=== PATIENT | male | born 1960 | race Caucasian/White ===

== ENCOUNTER 2016-05-26 11:56 | Emergency (ER) | payer BC ==
[~2016-05-26] VITALS: Ht 170.2 cm; Wt 105.1 kg
[2016-05-26 11:59] VITALS: TEMP 36.4; Ht 170.2 cm; Wt 105.1 kg
[2016-05-26] MEDS ORDERED: PRED10TA PO (12:13)
[2016-05-26] MEDS ORDERED: ASPI81TA28 PO (12:14)
[2016-05-26] MEDS ORDERED: MULT-506 PO (12:14)
[2016-05-26] MEDS ORDERED: PRED-301 PO (12:14)
--- NOTE | 2016-05-26 13:10 | EMERGENCY ROOM VISIT NOTE ---
History First contact with patient: 12:26 Chief Complaint: BACK PAIN Stated Complaint: LOWER BACK PAIN History of Present Illness The patient is a 56 year old male who presents to the Emergency Room with complaints of low back pain. The patient has had low back pain for the last 3 weeks. He has seen his family doctor twice and has tried prednisone. He states the pain is progressively worsening. The patient rates the pain is in the right side of the low back and rated 8/10. The pain radiates to the right lower extremity. He states the pain in the leg is intermittent. He denies any numbness, tearing, weakness, loss of bowel or bladder control. He denies any fevers or chills. He denies abdominal pain, nausea or vomiting. He denies any urinary symptoms. He denies any history of back pain. Review of Systems A 10 system review of systems was completed with positives and pertinent negatives listed in the HPI. Past Medical/Surgical History Medical Problems: (1) Hypertension Social History Smoking Status: Former Smoker Housing Status: lives with family Current/Historical Medications Scheduled Aspirin (Aspirin Ec), 81 MG PO DAILY Multivitamin (Multivitamin), 1 TAB PO DAILY Ondasetron Odt (Zofran Odt), 4 MG SL Q6H Prednisone (Prednisone), 0 PO UD Scheduled PRN Ketorolac (Toradol), 10 MG PO TID PRN for Pain Oxycodone Ir (Roxicodone Ir), 1-2 TAB PO Q4H PRN for Pain Allergies Coded Allergies: No Known Allergies (Unverified , 05/26/16) Physical Exam Vital Signs Date Time Temp Pulse Resp B/P Pulse Ox O2 Delivery O2 Flow Rate FiO2 05/26/16 16:40 57 18 185/90 95 05/26/16 15:59 58 18 168/82 98 Room Air 05/26/16 14:16 58 16 207/101 97 05/26/16 11:59 36.4 70 20 204/89 95 Room Air Physical Exam VITALS: Vitals are noted on the nurse's note and reviewed by myself. Vital signs stable. GENERAL: This is a 56-year-old male, in no acute distress, nondiaphoretic, well- developed well-nourished. SKIN: The skin was without rashes, erythema, edema, or bruising. There is no tenting of the skin. Capillary reflex less than 2 seconds. HEAD: Normocephalic atraumatic. EARS: External auditory canals clear, tympanic membranes pearly pérez without erythema or effusion bilaterally. EYES: Pupils equal round and reactive to light and accommodation. Conjunctivae without injection, sclerae without icterus. Extraocular movements intact. NOSE: Patent, turbinates without inflammation or discharge. MOUTH: Mucous membranes moist. Tonsils are not enlarged. Pharynx without erythema or exudate. Uvula midline. Airway patent. Tongue does not deviate. NECK: Supple without nuchal rigidity. No lymphadenopathy. No thyromegaly. Cervical spine is nontender. No JVD. HEART: Regular rate and rhythm without murmurs gallops or rubs. LUNGS: Clear to auscultation bilaterally without wheezes, rales or rhonchi. No retractions or accessory muscle use. ABDOMEN: Positive bowel sounds x 4. Soft, nontender, without masses or organomegaly. Graf sign negative. MUSCULOSKELETAL: No muscle atrophy, erythema, or edema noted. Full range of motion in all extremities. There is tenderness to palpation to the lumbar spine and right paraspinous muscles in the lumbar area. Strength 5/5 throughout. NEURO: Patient was alert and oriented to person place and time. Normal sensation to light and sharp touch. Deep tendon reflexes 2+ throughout. No focal neurological deficits. Medical Decision & Procedures ER Provider Diagnostic Interpretation: LUMBAR SPINE CT CT DOSE: 706.34 mGycm HISTORY: low back pain with radiation to right leg TECHNIQUE: Multiaxial CT images of the lumbar spine were performed and reformatted in the sagittal and coronal plane without the use of contrast. COMPARISON: None. FINDINGS: No fractures. No subluxation. Paraspinal soft tissues are unremarkable. Mild facet degenerative changes seen within the lower lumbar spine. Disc spaces are preserved. Minimal anterior wedging within the L1 and be seen within the range of normal limits. Tiny endplate osteophytes at L4-L5. At the right posterior aspect of the L4 vertebral body there is a 10 x 6 mm soft tissue density abutting the thecal sac. This results in mild to moderate right-sided central canal narrowing. This appears to compress the exiting right L4 nerve root. IMPRESSION: 1. No fractures within the lumbar spine. 2. At the right posterior aspect of the L4 vertebral body there is a 10 x 6 mm soft tissue density abutting the thecal sac. This results in mild to moderate right-sided central canal narrowing. This appears to compress the exiting right L4 nerve root. This most likely represents a disc protrusion with subtle superior subligamentous migration from the L4-L5 level versus a sequestered disc fragment. A soft tissue mass could also have a similar appearance but is considered less likely. Therefore, follow-up nonemergent MRI is recommended for further evaluation. Medications Administered Medications (Trade) Dose Ordered Sig/Lily Route Start Time Stop Time Status Last Admin Dose Admin Morphine Sulfate (MoRPHine SULFATE INJ) 6 mg NOW STAT IM 05/26/16 13:37 05/26/16 13:38 DC 05/26/16 13:45 6 MG Ondansetron HCl (Zofran Odt) 4 mg ONE ONCE PO 05/26/16 13:45 05/26/16 13:46 DC 05/26/16 13:44 4 MG Hydromorphone HCl (Dilaudid Inj) 1 mg NOW STAT IM 05/26/16 15:32 05/26/16 15:33 DC 05/26/16 15:51 1 MG ED Course The patient was seen and examined. Previous visits were reviewed. The patient does not have fever. He does not have any neurologic deficit on exam or by history. A CT scan of the lumbar spine was ordered as above. This suggests herniated disc at L4. The patient was given 6 mg IM morphine and 4 mg oral Zofran which helped his pain but it returned and he was given 1 mg IM Dilaudid with moderate improvement in his pain. I discussed the case with Kennedy RAMIREZ with Dr. Hernandez. He recommends a follow- up in the office on Sunday or Sunday, oral Toradol and oral pain medication. The patient will be given a prescription for OxyIR, Zofran and Toradol. The patient states that he did have a few episodes of vomiting earlier today. He was not initially forthcoming but states that he did drink alcohol heavily over the last 2 days in an effort to "numb" the pain. The vomiting was likely due to taking prednisone on an empty stomach, drinking alcohol heavily over the last several days. I advised the patient not to treat his pain with alcohol. The patient does not have any abdominal pain or tenderness on examination. He has not had any recurrence of nausea or vomiting. He does not have a fever. He was advised to watch for fever, loss of bowel or bladder control, saddle anesthesia, weakness, numbness, tingling in the legs. He was advised to return with any of the symptoms. direct mail manager was able to make an appointment with Dr. Hernandez on Sunday at 7: 45 AM. The patient was advised of this. Also, the patient was noted to be hypertensive. However, I feel that it was not an appropriate size blood pressure cuff that was used. Wound appropriate size cuff was placed the patient was mildly hypertensive. This was likely secondary to pain. The case was discussed with who agrees with the assessment and treatment plan Medical Decision DIFFERENTIAL DIAGNOSIS: Lumbar strain, degenerative disc disease, spondylolisthesis, herniated disc, spinal stenosis, osteoporosis, fracture, cauda equina syndrome, neoplasm, infection, inflammatory arthritis, among others. [place] Drug Monitoring Program Search Results: patient reviewed within database, no issues identified Impression Primary Impression: Lumbar herniated disc Departure Information Dispostion Home / Self-Care Condition GOOD Prescriptions Ondasetron Odt (ZOFRAN ODT) 4 Mg Tab 4 MG SL Q6H for Nausea, #20 TAB Prov: Danika Rothman PA-C 05/26/16 Ketorolac (Toradol) 10 Mg Tab 10 MG PO TID Y for Pain for 7 Days, #21 TAB Prov: Danika Rothman PA-C 05/26/16 Oxycodone Ir (Roxicodone Ir) 5 Mg Tab 1-2 TAB PO Q4H Y for Pain, #36 TAB For Initial Treatment Prov: Danika Rothman PA-C 05/26/16 Referrals Aayush Parsons DC (PCP) Cl Hernandez, DO Patient Instructions ED Disk Intervertebral Herniated, My [facility] Additional Instructions Toradol every 8 hours as needed for pain/ inflammation Oxy IR 1-2 tablets every 4-6 hrs as needed for worse pain. No driving or alcohol use with Oxy IR. Rest Follow up with Dr. Hernandez on as scheduled at 0745 Return with fevers, loss of bowel or bladder control, weakness in the legs or generalized worsening symptoms
[2016-05-26] MEDS ORDERED: MoRPHine SULFATE 10 MG/ML CARP/VIAL IM STA (13:37)
[2016-05-26] MEDS ORDERED: ONDANSETRON 4MG OD TAB PO ONE (13:45)
--- NOTE | 2016-05-26 15:15 | DIAGNOSTIC IMAGING REPORT ---
LUMBAR SPINE CT CT DOSE: 706.34 mGycm HISTORY: low back pain with radiation to right leg TECHNIQUE: Multiaxial CT images of the lumbar spine were performed and reformatted in the sagittal and coronal plane without the use of contrast. COMPARISON: None. FINDINGS: No fractures. No subluxation. Paraspinal soft tissues are unremarkable. Mild facet degenerative changes seen within the lower lumbar spine. Disc spaces are preserved. Minimal anterior wedging within the L1 and be seen within the range of normal limits. Tiny endplate osteophytes at L4-L5. At the right posterior aspect of the L4 vertebral body there is a 10 x 6 mm soft tissue density abutting the thecal sac. This results in mild to moderate right-sided central canal narrowing. This appears to compress the exiting right L4 nerve root. IMPRESSION: 1. No fractures within the lumbar spine. 2. At the right posterior aspect of the L4 vertebral body there is a 10 x 6 mm soft tissue density abutting the thecal sac. This results in mild to moderate right-sided central canal narrowing. This appears to compress the exiting right L4 nerve root. This most likely represents a disc protrusion with subtle superior subligamentous migration from the L4-L5 level versus a sequestered disc fragment. A soft tissue mass could also have a similar appearance but is considered less likely. Therefore, follow-up nonemergent MRI is recommended for further evaluation. Electronically signed by: Marvin Gorman M.D. 05/26/2016 3:13 PM Dictated Date/Time: 05/26/2016 3:03 PM
[2016-05-26] MEDS ORDERED: HYDROmorphone INJ 1 MG/ML SYR IM STA (15:32)
[2016-05-26] MEDS ORDERED: OXYC1TAB3 PO (16:03)
[2016-05-26] MEDS ORDERED: KETO10TA PO (16:03)
[2016-05-26] MEDS ORDERED: ONDA4TAB10 SL (16:27)
[2016-05-26 16:40] VITALS: BP 185/90; PULSE 57; O2SAT 95
[2016-06-20] MEDS ORDERED: GABA-113 PO (10:37)
[2016-06-20] MEDS ORDERED: OMEG10007 PO (10:37)
[2016-06-20] MEDS ORDERED: DICL-201 PO (10:37)
[2016-06-20] MEDS ORDERED: GLUC250C PO (10:37)
== END 2016-05-26 16:42 | disposition home or self-care (01) ==
LOC: C.EDB 11:59 → C.EDD 16:42
DX: M51.26 Other intervertebral disc displacement, lumbar region (principal); I10 Essential (primary) hypertension; Z87.891 Personal history of nicotine dependence; Z79.82 Long term (current) use of aspirin

== ENCOUNTER → 2017-05-02 | Outpatient (CLI) | payer OTHER ==
[~2017-05-02] MED LIST: ASPI81TA28 PO; DICL-201 PO; GABA-113 PO; GLUC250C PO; MULT-506 PO; OMEG10007 PO; OPTIRAY 320 IV PRN
--- NOTE | 2017-05-02 18:33 | DIAGNOSTIC IMAGING REPORT ---
ABDOMEN AND PELVIS CT WITH IV AND ORAL CONTRAST CT DOSE: 773.91 mGy.cm HISTORY: Acute left lower quadrant abdominal pain LLQ PAIN TECHNIQUE: Multiaxial CT images of the abdomen and pelvis were performed following the use of intravenous and oral contrast. A dose lowering technique was utilized adhering to the principles of ALARA. COMPARISON STUDY: Lumbar spine CT 05/26/2016. FINDINGS: Mild subsegmental dependent bibasilar atelectasis. Imaged inferior cardiac chambers are unremarkable. Minimal layering cholelithiasis. No CT evidence of acute cholecystitis. The liver, pancreas and adrenal glands are within normal limits. Spleen is mildly enlarged, 14 cm. Kidneys, ureters and urinary bladder are unremarkable with decompressed bladder lumen. Aorta is normal in course and caliber without aneurysm. Mild atherosclerosis of the aortoiliac bifurcation. No bulky adenopathy identified. No bowel obstruction. There is moderate wall thickening of the mid sigmoid colon with an inflamed diverticulum seen on image 353 series 3. There is moderate colonic diverticulosis. Mild to moderate mesenteric inflammatory changes seen about the sigmoid colon with thickening of the adjacent peritoneum. No drainable fluid collections or evidence of perforation. No pneumatosis or pneumoperitoneum. The appendix appears normal. Soft tissues are unremarkable. Small periumbilical fat filled hernia measures 1.7 cm. Mild facet arthrosis of the lower lumbar spine. Bones appear intact. IMPRESSION: 1. Findings compatible with acute uncomplicated sigmoid diverticulitis without evidence of drainable fluid collection or perforation. No bowel obstruction. 2. Normal appendix. 3. Cholelithiasis without CT evidence of acute cholecystitis. 4. Mild splenomegaly. Electronically signed by: Solis Liao M.D. 05/02/2017 6:31 PM Dictated Date/Time: 05/02/2017 6:21 PM
== END | disposition home or self-care (01) ==
LOC: C.CTS 15:49
PROVIDERS: ATTEND Student in an Organized Health Care Education/Training Program
DX: R10.32 Left lower quadrant pain (principal)